=== PATIENT | male | born 1980 | race Hispanic/Latino ===

== ENCOUNTER 2019-06-13 07:13 | Emergency (ER) | payer SELFPAY ==
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
[2019-06-13] MEDS ORDERED: HYDROCODONE/APAP 7.5/325 MG TAB ONE (08:40)
[2019-06-13] MEDS ORDERED: AMOX/K CLAV 875 MG TAB ONE (08:41)
[2019-06-13 08:55] VITALS: TEMP 98.2; O2SAT 100
[2019-06-13 08:59] VITALS: BP 133/74
== END 2019-06-13 08:49 | disposition home or self-care (01) ==
LOC: ER 07:13
DX: S02.2XXA Fracture of nasal bones, initial encounter for closed fracture (principal); V49.40XA Driver injured in collision with unspecified motor vehicles in traffic accident, initial encounter
CPT/HCPCS: 70450; 70486; 72125; 76377; 99284